=== PATIENT | female | born 1965 | race Caucasian/White ===

== ENCOUNTER → 2020-06-04 10:36 | Outpatient (BNVA) | payer MEDICAID, SELFPAY | PROVIDERS: PCP Internal Medicine; Visit Provider Student in an Organized Health Care Education/Training Program | DX: M25.511 Pain in right shoulder (principal); M25.512 Pain in left shoulder; G89.29 Other chronic pain; M70.61 Trochanteric bursitis, right hip; M70.62 Trochanteric bursitis, left hip | CPT/HCPCS: 99212 ==

== ENCOUNTER 2020-10-05 10:02 | Outpatient (REF) | payer MEDICAID, SELFPAY ==
[2020-10-05 12:49] LABS: Alanine Aminotransferase 17 U/L (0-31); Albumin Level 4.2 g/dL (3.5-5.0); Alkaline Phosphatase 60 U/L (39-117); Anion Gap 9 (12-20); Aspartate Amino Transferase 17 U/L (5-31); Bilirubin Total 0.6 mg/dL (0.0-1.0); Blood Urea Nitrogen 14 mg/dL (9-16); Calcium 9.2 mg/dL (8.4-10.2); Carbon Dioxide 29 mmol/L (22-29); Chloride 106 mmol/L (96-108); Estimated Glomerular Filt Rate > 60; Glucose Random 74 mg/dL (60-115); Potassium 4.1 mmol/L (3.3-5.1); Sodium 140 mmol/L (135-145); Total Protein 6.4 g/dL (6.5-8.0)
== END 2020-10-05 10:03 | disposition home or self-care (01) ==
LOC: HO.LAB 10:02
PROVIDERS: PCP Internal Medicine; Visit Provider Student in an Organized Health Care Education/Training Program
DX: M70.61 Trochanteric bursitis, right hip (principal); M70.62 Trochanteric bursitis, left hip
CPT/HCPCS: 36415; 80053; 99212

== ENCOUNTER → 2021-04-25 12:36 | Outpatient (BNVA) | payer MEDICAID, SELFPAY | PROVIDERS: PCP Internal Medicine; Visit Provider Nurse Practitioner Family | DX: M54.50 Low back pain, unspecified (principal); M79.7 Fibromyalgia; M79.641 Pain in right hand; M79.642 Pain in left hand | CPT/HCPCS: 99212 ==

== ENCOUNTER 2021-05-02 12:36 | Outpatient (REF) | payer MEDICAID, SELFPAY ==
--- NOTE | ~2021-05-02 | XR_ITS ---
EXAMINATION: XR HAND, BILATERAL CLINICAL INFORMATION: Pain. COMPARISON: None TECHNIQUE: 3 views of each hand. FINDINGS: Bone alignment is normal. No acute fracture or dislocation is seen. There is a well-corticated soft tissue ossification adjacent to the right proximal phalanx of the thumb near the IP joint probably related to old trauma. There is joint space narrowing at the IP joints. There is periarticular osteopenia. The joint spaces are otherwise normal. Soft tissues are normal. XR/XR hand RT min 3V IMPRESSION: Joint space narrowing at the IP joints and periarticular osteopenia..
--- NOTE | ~2021-05-02 | XR_ITS ---
EXAMINATION: XR HAND, BILATERAL CLINICAL INFORMATION: Pain. COMPARISON: None TECHNIQUE: 3 views of each hand. FINDINGS: Bone alignment is normal. No acute fracture or dislocation is seen. There is a well-corticated soft tissue ossification adjacent to the right proximal phalanx of the thumb near the IP joint probably related to old trauma. There is joint space narrowing at the IP joints. There is periarticular osteopenia. The joint spaces are otherwise normal. Soft tissues are normal. XR/XR hand LT min 3V IMPRESSION: Joint space narrowing at the IP joints and periarticular osteopenia..
[2021-05-02 14:24] LABS: Alanine Aminotransferase 18 U/L (0-31); Albumin Level 4.1 g/dL (3.5-5.0); Alkaline Phosphatase 54 U/L (39-117); Anion Gap 12 (12-20); Aspartate Amino Transferase 19 U/L (5-31); Bilirubin Total 0.9 mg/dL (0.0-1.0); Blood Urea Nitrogen 15 mg/dL (9-16); Calcium 9.3 mg/dL (8.4-10.2); Carbon Dioxide 27 mmol/L (22-29); Chloride 104 mmol/L (96-108); Estimated Glomerular Filt Rate > 60; Glucose Random 78 mg/dL (60-115); Potassium 3.9 mmol/L (3.3-5.1); Sodium 139 mmol/L (135-145); Total Protein 6.5 g/dL (6.5-8.0)
== END 2021-05-02 12:37 | disposition home or self-care (01) ==
LOC: HO.LAB 12:36
PROVIDERS: PCP Internal Medicine; Visit Provider Nurse Practitioner Family
DX: M79.641 Pain in right hand (principal); M79.642 Pain in left hand; M54.50 Low back pain, unspecified
CPT/HCPCS: 36415; 73130; 80053

== ENCOUNTER → 2021-07-04 09:16 | Outpatient (BNVA) | payer MEDICAID, SELFPAY | PROVIDERS: PCP Internal Medicine; Visit Provider Internal Medicine Rheumatology | DX: M79.7 Fibromyalgia (principal); M65.9 Synovitis and tenosynovitis, unspecified; M19.049 Primary osteoarthritis, unspecified hand | CPT/HCPCS: 99212 ==

== ENCOUNTER → 2021-11-14 10:01 | Outpatient (BNVA) | payer MEDICAID, SELFPAY | PROVIDERS: PCP Internal Medicine; Visit Provider Internal Medicine Rheumatology | DX: M79.7 Fibromyalgia (principal); M19.049 Primary osteoarthritis, unspecified hand | CPT/HCPCS: 99212 ==

== ENCOUNTER → 2021-12-12 14:49 | Outpatient (BNVA) | payer MEDICAID, SELFPAY | PROVIDERS: PCP Internal Medicine; Visit Provider Internal Medicine Rheumatology | DX: M65.9 Synovitis and tenosynovitis, unspecified (principal); M19.049 Primary osteoarthritis, unspecified hand; M79.7 Fibromyalgia; Z79.899 Other long term (current) drug therapy | CPT/HCPCS: 99212 ==

== ENCOUNTER 2023-04-13 15:34 | Outpatient (AMB) | payer MEDICAID, SELFPAY ==
--- NOTE | 2023-04-13 15:36 | A.OFFVIS_ITS ---
Intake Vital Signs 04/13/23 15:37 Height 5 ft Weight 139 lb 12.369 oz BMI 27.3 BP 126/68 Blood Pressure Location Rt brachial Position Sitting Pulse 52 Pulse Source Pulse Oximeter Pulse Oximetry (%) 99 Oxygen Delivery Method Room Air Intake Visit Reasons: FM Intake Note: Last seen by Dr Huynh November 2021. Superintendent Local Required: No Accompanied by: Self / Same As Patient Allergies oseltamivir [From Tamiflu] Allergy (Intermediate, Verified 04/13/23 15:47) Rash penicillin V Allergy (Intermediate, Verified 04/13/23 15:47) Hives Codeine Phosphate Allergy (Intermediate, Uncoded 04/13/23 15:47) Hives Medication List - Last Reconciled 04/13/23 by Shannan Garces MD cariprazine (Vraylar) 3 mg PO DAILY clonazepam 0.5 mg PO TID ibuprofen 800 mg PO Q8H PRN levothyroxine 25 mcg PO DAILY lisinopril 10 mg PO DAILY lurasidone mg PO omeprazole 20 mg PO BID prazosin 5 mg PO BEDTIME prazosin 2 mg PO BEDTIME pregabalin 75 mg PO BID tramadol 50 mg PO TID PRN vilazodone (Viibryd) 20 mg PO DAILY zolpidem ER (Ambien CR) 12.5 mg PO BEDTIME PRN HPI HPI Comments History of Present Illness Details 57-year-old female with osteoarthritis a nd fibromyalgia returns for follow-up. This is her 1st visit with me. She was last seen by Dr. Huynh 11/2021. Patient has been on tramadol for her pains for years. She takes multiple medications including clonazepam, lurasidone, Vraylar, Viibryd, Lyrica, zolpidem. She also vapes indica marijuana once or twice a week. She does not drive if she smokes marijuana. Drinks alcohol only on occasions every few month s. He continues to have some pain in her fingers, knees, toes. She stated that she used to get steroid injections in her back but they would only last 1 month at the most Most recent history by Dr. Huynh 11/2021: The patient returns today for discussion of her controlled substance contract. She had told me last time that her primary doctor was going to take over the tramadol prescriptions but apparently that did not work out. She remains on tramadol 50 mg t.i.d. for her osteoarthritis and fibromyalgia. Most of the pain seems to be at the base of the thumbs in both hands. She has read the controlled substance contract and admits she does take clonazepam, lurasidone, vilazodone, Lyrica, and zolpidem. She is aware these are all sedating but in spite of that she does not have slee piness while taking these drugs or the tramadol. She says occasionally she uses cannabis on the weekend but again avoids driving and does not feel it causes sedation being added to her current medications. She believes the tramadol is helpful at relieving her hand pain. [facility]LY [facility] Medical History Osteoarthritis of hand Flexor tenosynovitis of thumb Surgical History H/O gastric sleeve Family History Mother Cancer Father Cancer Social History Household Members: Spouse Alcohol intake: current Alcohol intake frequency: holidays/special occasions only Patient Tobacco Use Status: Never used Tobacco e-Cigarette/Vaping Use: Never Used Substance Use Type: Marijuana Review of Systems [facility] [place]ralgias and Reports stiffness Physical Exam Vital Signs: Last Vital Signs Pulse 52 04/13/23 15:37 BP 126/68 04/13/23 15:37 Pulse Ox 99 04/13/23 15:37 Oxygen Delivery Method Room Air 04/13/23 15:37 BMI result Body Mass Index 27.3 Const General: cooperative, healthy appearing and comfortable Nutritional Appearance: overweight Orientation/consciousness: patient oriented x3 Limitations: no limitations HEENT Head: Yes normocephalic and Yes atraumatic Mouth: moist mucous membranes Resp Effort & Inspection: normal respiratory effort and able to speak in complete sentences Neuro General: patient oriented x3 Extrem Other: Osteoarthritic changes of both hands with no active synovitis Normal range of motion of elbows and shoulders without pain Bilateral knee crepitus and pain with full flexion and extension Results Reviewed Results Reviewed: Old lab work from 2017: CRP normal, rheumatoid factor negative Patient: Rachelle Tay MR#: [id number] : 1965 Age/Sex: 55 / F Ordering Physician: Rosa Malone NP Date of Service: 05/02/21 Procedure(s): XR hand LT min 3V Accession Number(s): [id number] cc: Rosa Malone NP~ EXAMINATION: XR HAND, BILATERAL CLINICAL INFORMATION: Pain.? COMPARISON: None? TECHNIQUE: 3 views of each hand.? FINDINGS: Bone alignment is normal. No acute fracture or dislocation is seen. There is a well-corticated soft tissue ossification adjacent to the right proximal phalanx of the thumb near the IP joint probably related to old trauma. There is joint space narrowing at the IP joints. There is periarticular osteopenia. The joint spaces are otherwise normal. Soft tissues are normal. XR/XR hand LT min 3V IMPRESSION: Joint space narrowing at the IP joints and periarticular osteopenia..? Dictated By: Monae Beyer MD Assessment & Plan Assessment & Plan (1) Fibromyalgia: Code(s): M79.7 - Fibromyalgia (2) Pain management contract agreement: Comment: 2021: 84 tramadol 50 mg per 28 days Code(s): Z02.89 - Encounter for other administrative examinations Plan: Her chronic pains continue, a result of generalized osteoarthritis and fibromyalgia.? She seems to be tolerating the tramadol and believes it is helpful.? This is in spite of her multiple other medications.? I did review with her the need to be careful about additional sedation with the other medications and avoid driving if sedation was developing.? She should call us with any changes in her medication list and be careful when the medications are adjusted.? I told her to be particularly careful with the use of additional cannabis as its interaction with the above drugs is not well understood and can potentially increase sedation Tramadol refilled. Follow-up in 6 months (3) Generalized osteoarthritis: Code(s): M15.9 - Polyosteoarthritis, unspecified Plan: Fairly well managed with current meds Plan I spent 18 minutes reviewing patient's chart, evaluating patient, ordering diagnostic workup, counseling patient and documenting in the chart Medications: Refilled tramadol 50 mg PO TID PRN 84 tabs 5RF pain M19.049 - Primary osteoarthritis, unspecified hand Coding Level of Care Code Est Pt Level 3 (03071) Diagnoses Fibromyalgia M79.7 Pain management contract agreement Z02.89 Generalized osteoarthritis M15.9
[2023-04-13 15:37] VITALS: BP 126/68; PULSE 52; O2SAT 99; BMI 27.3
== END 2023-04-13 16:00 | disposition home or self-care (01) ==
PROVIDERS: PCP Internal Medicine; Visit Provider Student in an Organized Health Care Education/Training Program
DX: M79.7 Fibromyalgia (principal); M15.8 Other polyosteoarthritis
CPT/HCPCS: 99213

== ENCOUNTER → 2023-04-13 15:34 | Outpatient (BNVA) | payer MEDICAID, SELFPAY | PROVIDERS: PCP Internal Medicine; Visit Provider Student in an Organized Health Care Education/Training Program | DX: M15.9 Polyosteoarthritis, unspecified (principal); M79.7 Fibromyalgia; Z02.89 Encounter for other administrative examinations | CPT/HCPCS: 99212 ==

== ENCOUNTER 2024-06-10 14:46 | Outpatient (AMB) | payer MEDICAID, SELFPAY ==
[2024-06-10 14:50] VITALS: BP 128/72; PULSE 71; O2SAT 97; BMI 27.6
--- NOTE | 2024-06-10 14:50 | MHC.OFFVIS ---
Vital Signs 06/10/24 14:50 Height 5 ft Weight 141 lb 8.588 oz BMI 27.6 BP 128/72 Blood Pressure Location Lt brachial Position Sitting Pulse 71 Pulse Source Pulse Oximeter Pulse Oximetry (%) 97 Oxygen Delivery Method Room Air Intake Visit Reasons: FM Intake Note: Patient presents for follow up on fibromyalgia and arthritis. She was last seen in the office by Dr. Garces on 04/13/23. Allergies oseltamivir [From Tamiflu] Allergy (Intermediate, Verified 06/10/24 14:52) Rash penicillin V Allergy (Intermediate, Verified 06/10/24 14:52) Hives Codeine Phosphate Allergy (Intermediate, Uncoded 06/10/24 14:52) Hives Medication List - Last Reconciled 06/10/24 by Emily Amezquita MD cariprazine (Vraylar) 3 mg PO DAILY clonazepam 0.5 mg PO TID levothyroxine 25 mcg PO DAILY lisinopril 10 mg PO DAILY lurasidone mg PO omeprazole 20 mg PO BID prazosin 5 mg PO BEDTIME prazosin 2 mg PO BEDTIME pregabalin 75 mg PO BID tramadol 50 mg PO TID PRN vilazodone (Viibryd) 20 mg PO DAILY zolpidem ER (Ambien CR) 12.5 mg PO BEDTIME PRN HPI Comments Details: Patient is a 58-year-old female with hypothyroidism, hypertension, polyarticular osteoarthritis (hands, hips and knees) and fibromyalgia here today for follow up Interval History: Patient last seen 04/13/[address] Garces. At that time she was following up for her osteoarthritis and fibromyalgia. At that time she was on tramadol which was helpful. Review of her medications showed that she had a lot of sedative medications this was discussed with the patient. Including the addition of cannabis to her sedating medications Today, She is complaining of bilateral shoulder pain, bilateral outer hip pain and bilateral knee pain Unable to lay down on the side for prolonged period of time because of this Patient came with her daughter and granddaughter Jayne Rheumatologic History: Most recent history from Dr. Garces 04/2023: 57-year-old female with osteoarthritis and fibromyalgia returns for follow-up. This is her 1st visit with me. She was last seen by Dr. Huynh 11/2021. Patient has been on tramadol for her pains for years. She takes multiple medications including clonazepam, lurasidone, Vraylar, Viibryd, Lyrica, zolpidem. She also vapes indica marijuana once or twice a week. She does not drive if she smokes marijuana. Drinks alcohol only on occasions every few months. He continues to have some pain in her fingers, knees, toes. She stated that she used to get steroid injections in her back but they would only last 1 month at the most Most recent history by Dr. Huynh 11/2021: The patient returns today for discussion of her controlled substance contract. She had told me last time that her primary doctor was going to take over the tramadol prescriptions but apparently that did not work out. She remains on tramadol 50 mg t.i.d. for her osteoarthritis and fibromyalgia. Most of the pain seems to be at the base of the thumbs in both hands. She has read the controlled substance contract and admits she does take clonazepam, lurasidone, vilazodone, Lyrica, and zolpidem. She is aware these are all sedating but in spite of that she does not have sleepiness while taking these drugs or the tramadol. She says occasionally she uses cannabis on the weekend but again avoids driving and does not feel it causes sedation being added to her current medications. She believes the tramadol is helpful at relieving her hand pain. Current Rheumatology Medication(s): Tramadol 50mg tid Pregabalin 75mg bid [facility] Medical History Osteoarthritis of hand Flexor tenosynovitis of thumb Surgical History H/O gastric sleeve Family History Mother Cancer Father Cancer Social History Household Members: Spouse Alcohol intake: current Alcohol intake frequency: holidays/special occasions only Patient Tobacco Use Status: Never used Tobacco e-Cigarette/Vaping Use: Never Used Substance Use Type: Marijuana Review of Systems Const Details: Review of Systems Constitutional: Denies fever, chills, weight loss ENT: Denies vision changes, eye pain or eye redness, dental caries, dry mouth GI: Denies nausea, vomiting, diarrhea, abdominal pain, change in BM Pulm: Denies SOB, HERRERA, hemoptysis, wheezing Cards: Denies chest pain, palpitations Skin: Denies Raynaud's, rash, nail changes, photosensitivity, [employer]: Denies headaches, weakness, paresthesias, recurrent falls MSK: as per HPI All other systems reviewed and are unremarkable except noted above Physical Exam Vital Signs: Last Vital Signs Pulse 71 06/10/24 14:50 BP 128/72 06/10/24 14:50 Pulse Ox 97 06/10/24 14:50 Oxygen Delivery Method Room Air 06/10/24 14:50 BMI result Body Mass Index 27.6 Vital signs reviewed Physical Examination CONSTITUITIONAL Patient alert and cooperative. Well appearing and in no apparent painful distress HEENT Conjunctiva and sclera clear. ?Pupils equal round and reactive to light. ?No lymphadenopathy. ? CHEST/RESPIRATORY SYSTEM Normal respiratory effort and able to speak in complete sentences. ?Clear to auscultation bilaterally. ?No crackles, rales, rhonchi, wheezes heard. CARDIAC SYSTEM Regular rate and rhythm. ?S1 and S2 heard no murmurs. ?Radial pulses intact bilaterally MSK Hands: ?Able to make a fist. No synovitis noted to the MCPs, PIPs or DIPs. ?No tenderness to palpation of these joints. Herbeden's nodes Wrists: ?Full range of motion at the wrists without pain. ?No tenderness to palpation or synovitis noted to the wrists. Elbows: Full range of motion without pain. No tenderness, weakness, swelling, increased warmth or erythema. Shoulders: Full range of active range of motion without pain. No tenderness, weakness, swelling, increased warmth or erythema. Knees: ?Full range of motion. ?No tenderness, swelling, increased warmth or erythema.?No effusion or crepitations Ankles: Full range of motion. ?No tenderness, swelling, increased warmth or erythema.? Feet: ?Negative squeeze test. ?No tenderness to palpation or swelling of the MTPs. Tender points:?Tenderness to palpation of the bilateral trapezius, supraspinatus, greater trochanters, anterior costochondral junctions, bilateral gluteal areas, bilateral suboccipital muscle insertions and bilateral pes anserine bursa SKIN Skin intact without rashes. Results Reviewed Results Reviewed: No recent lab work seen Assessment & Plan Assessment & Plan (1) Fibromyalgia: Code(s): M79.7 - Fibromyalgia Category: Medical Plan: #Fibromyalgia Patient is a 58-year-old female with fibromyalgia here today for follow up. Today patient continues to have fibromyalgia pains including bilateral subacromial bursa inflammation, bilateral greater trochanteric bursitis and bilateral pes anserine bursitis. Discussed steroid injection with the patient however patient declined due to steroid injections not lasting for any period of time in the past. Discussed with patient and daughter that the real treatment is consistent stretching. Recommended that she do topical diclofenac on 1 set of areas along with stretches which I gave her 2 printouts 1 4 greater trochanteric bursitis and another for pes anserine bursitis Plan - Topical diclofenac 1% 4 times day - Stretches - Tramadol 50mg tid - Pregabalin 75mg bid - RTC 6 months for re evaluation (2) Generalized osteoarthritis: Code(s): M15.9 - Polyosteoarthritis, unspecified Category: Medical Plan: #Polyarticular OA Patient with polyarticular osteoarthritis at this time her osteoarthritis pains are under control. Her main issue right now is her active fibromyalgia Plan I spent 30 minutes reviewing the record and labs, taking a history, examining the patient, discussing the treatment plan, ordering diagnostic work up and documenting in the medical record0 Medications: New diclofenac sodium 1% apply to desired area 4 grams topical QID 100 grams 5RF M15.9 - Polyosteoarthritis, unspecified Refilled tramadol 50 mg PO TID PRN 90 tabs 3RF pain M19.049 - Primary osteoarthritis, unspecified hand pregabalin 75 mg PO BID 60 caps 3RF M79.7 - Fibromyalgia Coding Level of Care Code Est Pt Level 4 (16140) Diagnoses Fibromyalgia M79.7 Generalized osteoarthritis M15.9
--- OUTSIDE RECORDS SUMMARY | 2024-06-10 18:05 | XMS_ITS | Data Portability ---
Author Organization [facility] Pain Managem fer[facility] PAIN OFFICE Address [address] [facility] [address] [place] [address] Care Team Providers Care Special Police Name Role Phone EDILBERTO HASSAN Primary Care Provider YOSELIN JOHNSTON Window Draper Assessment Encounter Date Assessment Date Assessment LastModified by Organization Details LastModified Time 05/23/2018 05/23/2018 Rachelle Tay is a 52 year old woman with low back pain radiating into the right lower extremity. This is a work related injury. On exam ,she has pain on flexion. Straight leg raising test is positive on the right . Mild decrease in sensation in the lateral aspect of the right foot. MRI Lumbar spine shows L5-S1: Small right central disc herniation with mild contact with right S1 nerve root sleeve without nerve root displacement. Trial of Lumbar epidural steroid injection at L5-S1 level under fluoroscopic guidance was recommended. The risks and benefits of the procedure were discussed in detail. She wishes to proceed. An appointment will be booked after worker's compensation approval. She needs a interstate bus driver on the day of the procedure. [email or web address] Not available 05/27/2018 13:26:46 06/19/2018 06/19/2018 Rachelle Tay is a 52 year old woman with low back pain radiating into the right lower extremity. This is a work related injury. On exam ,she has pain on flexion. Straight leg raising test is positive on the right . Mild decrease in sensation in the lateral aspect of the right foot. MRI Lumbar spine shows L5-S1: Small right central disc herniation with mild contact with right S1 nerve root sleeve without nerve root displacement. She is here for a trial of Lumbar epidural steroid injection at L5-S1 level under fluoroscopic guidance . The risks and benefits of the procedure were discussed in detail. She wishes to proceed. She needs to follow up in four weeks. Worker's compensation approval needed. [email or web address] Not available 06/21/2018 09:28:02 08/01/2018 08/01/2018 Rachelle Tay is a 52 year old woman with low back pain radiating into the right lower extremity. This is a work related injury. On exam ,she has pain on flexion. Straight leg raising test is positive on the right . Mild decrease in sensation in the lateral aspect of the right foot. MRI Lumbar spine shows L5-S1: Small right central disc herniation with mild contact with right S1 nerve root sleeve without nerve root displacement. She is here for a trial of Lumbar epidural steroid injection at L5-S1 level under fluoroscopic guidance . She reports no pain benefit. I recommend a neurosurgical consultation with Dr. Franco, a neurosurgeon in [place], [place] .Worker's compensation approval needed. [email or web address] Not available 08/17/2018 15:35:10 Plan of Treatment Reminders Order Date Submit Date Provider Last Modified By Organization Details Last Modified Time Details Appointments None record ed. Lab None record ed. Referral None record ed. Procedures None record ed. Surgeries None record ed. Imaging None record ed. Medication Orders None record ed. Patient TargetsNo targets recorded. Patient InstructionsNo instructions recorded. Reason for Referral None Reported. Problems Name Problem SNOMED Code Status Onset Date Resolution Date Notes Provider Name and Address Organization Details Recorded Time Lumbosacral radiculopathy [id number] Maday peters MD [address] [facility] , [address], [place], [address], [place] [facility] 9 13:15:15 Spinal stenosis of lumbar region 61999083 Maday peters MD [address] [facility] , [address], [place], [address], [place] [facility] 9 13:15:08 Displacement of lumbar intervertebral disc without myelopathy [id number] Maday peters MD [address] [facility] , [address], [place], [address], [place] [facility] 9 13:15:12 Lumbosacral spondylosis without myelopathy [id number] Maday peters MD [address] [facility] , [address], [place], [address], [place] [facility] 13:15:19 Problem Notes None recorded. Procedures Surgical History Date Name Laterality Status Provider Name and Address Organization Details Recorded Time 06/20/19 19 Lumbar Epidural steroid injection under fluoroscopic guidance completed George Kennedy MD [address] [facility] , [address], [place], [address], [place] [facility] 06/19/2018 14:57:44 Hysterectomy completed Larissa Greshamer [place] [facility] 05/23/2018 13:58:32 Tonsillectomy completed Larissa Poseyzier [place] [facility] 05/23/2018 13:58:41 Imaging Results None recorded. Procedure Notes None recorded. Medical Equipment None Reported. Allergies Allergen ID Allergen Name Allergen Category Reaction Reaction Severity Criticality Documentation Date Start Date Code Code System Note Provider Name and Address Organization Details Recorded Time 73955 Product containin g penicilli n (product) medicatio n hives rash Not available Not available Not available 05/23/2018 61947 8001 SNOMED Larissa Poseyzier [place] [facility] 9 13:52:53 60567 codeine medicatio n hives rash Not available Not available Not available 05/23/2018 2670 RxNorm Larissa Poseyzier [place] [facility] 9 13:53:21 59149 Tamiflu medicatio n Not available Not available Not available 05/23/2018 63514 7 RxNorm Itchy throa t Larissa Poseychelsi kelly [place] [facility] 9 13:53:45 Medications Name Sig Start Date Stop Date Status Note LastModified by Organization Details LastModified Time clotrimazo le 10 mg azul DIS 1 LOZENGE PO FID FOR 14 DAYS 05/23 completed Not Available Not Available Not Available gabapentin 600 mg tablet TK 1 T PO BID active Pt taking 1/2 tab three time Not Available Not Available Not Available lisinopril 20 mg-hydroch lorothiazi de 12.5 mg tablet TK 1 T PO QD active Not Available Not Available No t Available azithromyc in 250 mg tablet 05/23 completed Not Available Not Available Not Available metoprolol succinate ER 50 mg tablet,ext ended release 24 hr TK 1 T PO QD active Not Available Not Available No t Available chlorzoxaz one 500 mg tablet TK 1 T PO TID PRN 05/23 completed Not Available Not Available Not Available clonazepam 0.5 mg tablet TK 1 T PO TID active Not Available Not Available No t Available amlodipine 5 mg tablet TK 1 T PO HS active Not Available Not Available No t Available tramadol 50 mg tablet TK 1 TS PO BID FOR 30 DAYS active Not Available Not Available No t Available quetiapine 100 mg tablet TK 1 T PO ONCE A DAY HS active Not Available Not Available No t Available prazosin 5 mg capsule TK ONE C PO D HS active Not Available Not Available No t Available omeprazole 20 mg capsule,de layed release TK ONE C PO QD active Not Available Not Available No t Available zolpidem 10 mg tablet TK 1 T PO HS PRF INSOMNIA active Not Available Not Available No t Available methylpred nisolone 4 mg tablets in a dose pack TAKE DIRECTED 05/23 completed Not Available Not Available Not Available prazosin 2 mg capsule TK 1 C PO QD HS 05/23 completed Not Available Not Available Not Available Lyrica 50 mg capsule TK 1 C PO BID active Not Available Not Available No t Available fenofibrat e 54 mg tablet TK 1 T PO QD active Not Available Not Available No t Available Viibryd 40 mg tablet TK 1 T PO ONCE A DAY HS active Not Available Not Available No t Available Latuda 120 mg tablet TK 1 T PO ONCE A DAY QAM active Not Available Not Available No t Available Latuda 60 mg tablet TK 1 T PO ONCE A DAY IN THE MORNING active Not Available Not Available No t Available Vitals Date Recorded Body height Body mass index (BMI) Body weight Heart rate Oxygen saturation Oxygen saturation in Arterial blood by Pulse oximetry Systolic blood pressure Diastolic blood pressure Provider Name and Address Organization Details Last Updated DateTime 9 158.75 cm 36 kg/m2 01108.4 7 g 74 /min 97 % 97 % 132 mm[Hg] 96 mm[Hg] Larissa Lujan [place] [facility] 9 13:50:17 Date Recorded Body height Heart rate Oxygen saturation Oxygen saturation in Arterial blood by Pulse oximetry Systolic blood pressure Diastolic blood pressure Provider Name and Address Organization Details Last Updated DateTime 9 158.75 cm 76 /min 98 % 98 % 144 mm[Hg] 97 mm[Hg] Larissa Lujan [place] [facility] 9 11:37:31 Date Recorded Body height Heart rate Oxygen saturation Oxygen saturation in Arterial blood by Pulse oximetry Systolic blood pressure Diastolic blood pressure Provider Name and Address Organization Details Last Updated DateTime 9 158.75 cm 78 /min 98 % 98 % 144 mm[Hg] 95 mm[Hg] Larissa Lujan [place] [facility] 9 16:00:38 Social History Question Answer Notes LastModified by Organizat ion Details LastModified Time Tobacco Smoking Status Never Smoker Not Available [employer] 11/28/2019 03:16:10 What Is Your Level Of Alcohol Consumption? Occasional [id number] Information not available 11/28/2019 Are You Currently Employed? No [id number] Information not available 11/28/2019 Which Illicit Or Recreational Drugs Have You Used? NO [id number] Information not available 11/28/2019 Education 9 Information no t available 05/23/2018 Live Alone Or With Others? With Others Boyfriend Information not available 05/23/2018 Marital Status Single Informatio n not available 05/23/2018 What Was The Date Of Your Most Recent Tobacco Screening? 08/17/2018 [id number] Information not available 11/28/2019 Sex: Unknown Functional Status None recorded. Mental Status None recorded. Family History Relationship Description Onset Age of this Age Resolved Age Notes LastModified by Organization Details LastModified Time Paternal Aunt Malignant neoplastic disease Not available 2018 13:57:28 Notes:Multiple family embers with [place] Medical History Condition Response Anxiety Disorder Y Fibromyalgia Y Arthritis Y Hypertension Y Depression Y High Cholesterol Y GERD/Reflux Y Gynecological HistoryNo gynecological history recorded. Obstetrics History GPAL:G 0 P 0 0 0 0 Past Encounters Encounter ID Performer Location Encounter Start Date Encounter Closed Date Diagnosis/Indication Diagnosis SNOMED-CT Code Diagnosis ICD10 Code Diagnosis Note [id number] George Kennedy MD PAIN OFFICE [address] [facility],[address] [place] [address] 05/23/2018 13:17:50 05/27/2018 14:17:48 Lumbosacral radiculopathy 7501826 M54.17 Spinal krystal nosis of lumbar region 62340720 M48.061 Displaceme nt of lumbar intervertebral disc without myelopathy 07105307 M51.26 Lumbosacra l spondylosis without myelopathy 10530080 M47.817 [id number] George Kennedy MD PAIN OFFICE [address] [place] [address] 06/19/2018 11:23:25 06/19/2018 15:22:54 Lumbosacral radiculopathy 0888540 M54.17 Spinal krystal nosis of lumbar region 99631049 M48.061 Displaceme nt of lumbar intervertebral disc without myelopathy 53992989 M51.26 Lumbosacra l spondylosis without myelopathy 93930382 M47.817 [id number] George Kennedy MD PAIN OFFICE [address] [place] [address] 08/01/2018 15:09:20 08/17/2018 15:35:41 Lumbosacral radiculopathy 6645402 M54.17 Spinal krystal nosis of lumbar region 48166087 M48.061 Displaceme nt of lumbar intervertebral disc without myelopathy 01997308 M51.26 Lumbosacra l spondylosis without myelopathy 43092647 M47.817 Health Concerns Section Related Observation LastModified by Organization Detai ls LastModified Time None Recorded Concern Status LastModified by Organization Details LastModified Time None Recorded Advance Directives Directive None Recorded Payers Encounter Date Sequence Insurance Name Policy Number Policy Hdz Covered Member ID Hdz Member ID Guarantor Name 05/23/2018 [employer] Maggi Tay 06/19/2018 [employer] Maggi Tay 08/01/2018 [employer] Maggi Tay Notes Date Note Type Note Provider Name and Address Organization Details Recorded Time 05/23/2018 text/html Rachelle Stephensgunnar payam is a 52 year old woman with complaints of low back pain radiating into right lower extremity. This is a work related injury. She was working as a [employer] at [employer] and she states she slipped on a dryer sheet and has been having low back pain since the incident . She started to have severe pain radiating into right lower extremity. She describes the pain as a shooting pain , sharp from her right buttock region to the right leg with numbness, tingling and weakness in her right lower extremity. Current pain level is 5-10/10. Pain is aggravated by standing and walking . Pain is relieved a little with application of heat. She is unable to sleep due to positioning and awakens multiple times at night due to pain. She has no history of bladder or bowel incontinence.MRI Lumbar spine shows L5-S1: Small right central disc herniation with mild contact with right S1 nerve root sleeve without nerve root displacement.She has trialed physical therapy at [place] with some pain benefit. She had injection at [facility] [place] with minimal pain benefit. She takes tylenol and ibuprofen and is unsure of pain benefit. George Kennedy MD [address] [facility] , [address], [place], [address], [facility] 05/30/2018 10:32:06 06/19/2018 text/html She is here for a trial of lumbar epidural steroid injection under fluoroscopic guidance. George Kennedy MD [address] [facility] , [address], [place], [address], [facility] 06/21/2018 09:28:06 08/01/2018 text/html She is here for a follow up after a lumbar epidural steroid injection under fluoroscopic guidance. She reports no pain relief. She continues to have low back pain radiating into right lower extremity. She states she has seen Dr. Gallardo for a independent medical review. George Kennedy MD [address] [facility] , [address], [place], [address], [facility] 08/17/2018 16:04:08 OBGyn Episode No OBEpisode recorded.
== END 2024-06-10 15:32 | disposition home or self-care (01) ==
LOC: HO.RHE 14:46
PROVIDERS: PCP Internal Medicine; Visit Provider Student in an Organized Health Care Education/Training Program
DX: M79.7 Fibromyalgia (principal); M15.9 Polyosteoarthritis, unspecified
CPT/HCPCS: 99214

== ENCOUNTER → 2024-06-10 14:46 | Outpatient (BNVA) | payer MEDICAID, SELFPAY | PROVIDERS: PCP Internal Medicine; Visit Provider Student in an Organized Health Care Education/Training Program | DX: M79.7 Fibromyalgia (principal); M15.9 Polyosteoarthritis, unspecified | CPT/HCPCS: 99212 ==